=== PATIENT | female | born 1985 | race Caucasian/White ===

== ENCOUNTER 2019-03-05 10:48 | Emergency (ER) | payer MEDICAID ==
[~2019-03-05] VITALS: Ht 152.4 cm; Wt 94.8 kg
[2019-03-05 11:09] VITALS: Ht 152.4 cm; Wt 94.8 kg
[2019-03-05 11:25] LABS: BASOPHIL % 0.6 % (0-2); PLATELET COUNT 286 x10^3mcL (130-400); RED CELL DISTRIBUTION WIDTH 12.6 % (11.5-14.5)
[2019-03-05 17:50] VITALS: BP 95/51
== END 2019-03-05 17:50 | disposition home or self-care (01) ==
LOC: ED 10:48
DX: O20.0 Threatened abortion (principal)
CPT/HCPCS: 36415